=== PATIENT | female | born 1995 | race African-American/Black ===

== ENCOUNTER 2017-08-29 18:33 | Emergency (ER) | payer BC ==
[~2017-08-29] VITALS: Ht 160 cm; Wt 91.0 kg
[2017-08-29 18:39] VITALS: BP 140/69; PULSE 76; RESP 18; TEMP 98.8; O2SAT 100
[2017-08-29] MEDS ORDERED: PREN29TA PO (21:21)
--- NOTE | 2017-08-29 21:26 | PD ---
HPI Chief Complaint: Related Problem Time Seen by Provider: 21:15 Travel History International Travel<30 days: No Contact w/Intl Traveler<30days: No Traveled to known affect area: No History of Present Illness HPI 22-year-old black female presents to emergency department after performing a home test which was positive. She comes in to verify this. She denies any abdominal pain, vaginal bleeding or urinary symptoms. She does state that she's had some nausea and general malaise. No vomiting. Patient's last period was in the middle of July. Symptoms are mild. No alleviating factors. Exacerbated by having unprotected intercourse PFSH Past Medical History Medical History: Denies Significant Hx Immunizations Current: Yes ?: LMP: 07/20/17 : 1 Para: 0 Past Surgical History Surgical History: No Previous Surgery Social History Alcohol Use: Yes (OCC) Tobacco Use: No Substance Use: Yes (THC) Allergies-Medications (Allergen,Severity, Reaction): Coded Allergies: No Known Allergies (Unverified , 08/29/17) Reported Meds & Prescriptions Reported Meds & Active Scripts Active Plus Iron 29-1 mg ( Vit-Iron Carbonyl) 29 Mg Iron-1 Mg Tab 1 Tab PO DAILY Review of Systems Except as stated in HPI: all other systems reviewed are Neg Physical Exam Narrative GENERAL: Well-developed, well-nourished in no acute distress. Nontoxic appearing. HEAD: Normocephalic, atraumatic. EYES: Pupils equal round and reactive. Extraocular motions intact. No scleral icterus. No injection or drainage. ENT: TMs clear without erythema. The external auditory canals clear. Nose: clear . Posterior pharynx is pink and moist. No tonsillar edema or exudate. Uvula midline. Airway patent. NECK: Trachea midline.Supple, nontender, moves head freely. No central bony tenderness or spasm. CARDIOVASCULAR: Regular rate and rhythm without murmurs, gallops, or rubs. RESPIRATORY: Clear to auscultation. Breath sounds equal bilaterally. No wheezes , rales, or rhonchi. GASTROINTESTINAL: Abdomen soft, non-tender, nondistended. No hepato-splenomegaly , or palpable masses. No guarding. EXTREMITIES: No clubbing, cyanosis, or edema. No joint tenderness, effusion, or edema noted. BACK: Nontender without deformity or crepitance. No flank tenderness. Data Data Last Documented VS Vital Signs Date Time Temp Pulse Resp B/P (MAP) Pulse Ox O2 Delivery O2 Flow Rate FiO2 08/29/17 18:39 98.8 76 18 140/69 (92) 100 Orders Orders Ed Discharge Order (08/29/17 21:22) MDM Medical Decision Making Medical Screen Exam Complete: Yes Emergency Medical Condition: Yes Medical Record Reviewed: Yes Interpretation(s) Urine test positive Differential Diagnosis Differential diagnoses: , UTI, false Narrative Course Patient sprain status is positive. Her exam is normal. She is given a prescription for vitamins and encouraged to follow-up with REPRESENTATIVE. This is first trimester Diagnosis Primary Impression: First trimester Referrals: [facility] 1 week Patient Instructions: General Instructions Additional Instructions: Rest. vitamins. Follow-up with REPRESENTATIVE. Return to the ER for emergencies Med/Other Pt SpecificInfo: Prescription(s) given Scripts Vit-Iron Carbonyl ( Plus Iron 29-1 mg) 29 Mg Iron-1 Mg Tab 1 TAB PO DAILY for Nutritional Supplement, #30 TAB 0 Refills Prov: Jayce Freeman MD 08/29/17 Disposition: 01 DISCHARGE HOME Condition: Stable Jacob Foss Aug 29, 2017 21:26
== END 2017-08-29 21:34 | disposition home or self-care (01) ==
LOC: NEPD 18:33
DX: R11.0 Nausea (principal); O26.811 Pregnancy related exhaustion and fatigue, first trimester; Z32.01 Encounter for pregnancy test, result positive
CPT/HCPCS: 99283